=== PATIENT | female | born 1995 | race Caucasian/White ===

== ENCOUNTER 2017-05-20 18:26 | Emergency (ER) | payer OTHER ==
[~2017-05-20] VITALS: Ht 170.2 cm; Wt 79.0 kg
[2017-05-20 18:35] VITALS: BP 110/76; PULSE 96; RESP 16; TEMP 98.2; O2SAT 99
[2017-05-20 19:02] LABS: GLUCOSE,URINE NEG (NEG); KETONE, URINE NEG (NEG); NITRITE,URINE NEG (NEG)
[2017-05-20 19:05] LABS: BLOOD, URINE MOD (NEG)
[2017-05-20 19:10] LABS: URINE COLOR YELLOW (YELLW/STRAW)
[2017-05-20 19:11] LABS: BACTERIA, URINE FEW /hpf; MUCUS URINE FEW /lpf (OCC); RBC, URINE 0-3 /hpf (0-3); SQUAMOUS EPITHELIAL CELL URINE > 8 /hpf (0-5)
[2017-05-20 19:12] LABS: COMMENT (UR) CULTURE INDICATED; CULTURE IF INDICATED CULTURE INDICATED
[2017-05-20 19:42] VITALS: BP 124/71; PULSE 94; RESP 18; O2SAT 99
[2017-05-20] MEDS ORDERED: [UNRECOGNIZED DRUG - OTHER] PO (19:42)
[2017-05-20] MEDS ORDERED: BIOTCAP PO (19:42)
[2017-05-20 20:30] VITALS: BP 113/64; PULSE 88; RESP 18; O2SAT 99
[2017-05-20 20:32] LABS: AUTOMATED NEUTROPHIL # 9.4 TH/MM3 (1.8-7.7); BASOPHIL # 0.1 TH/MM3 (0-0.2); BASOPHIL % 0.4 % (0.0-2.0); EOSINOPHIL # 0.6 TH/MM3 (0-0.4); EOSINOPHIL % 3.8 % (0.0-4.0); LYMPH % 31.2 % (9.0-44.0); LYMPHOCYTE # 4.8 TH/MM3 (1.0-4.8); MEAN CELL VOLUME 87.1 FL (80.0-100.0); MEAN CORPUSCULAR HEMOGLOBIN 29.6 PG (27.0-34.0); MONO % 3.9 % (0.0-8.0); NEUT % 60.7 % (16.0-70.0); PLATELET COUNT 354 TH/MM3 (150-450); RED BLOOD COUNT 4.71 MIL/MM3 (4.00-5.30); RED CELL DISTRIBUTION WIDTH 12.3 % (11.6-17.2); WHITE BLOOD COUNT 15.5 TH/MM3 (4.0-11.0)
[2017-05-20 20:34] LABS: HEMO FLAGS DIFF FINAL
[2017-05-20 20:39] LABS: CHLORIDE 107 MEQ/L (98-107); POTASSIUM 3.6 MEQ/L (3.5-5.1); SODIUM (NA) 139 MEQ/L (136-145)
[2017-05-20 20:42] LABS: ANION GAP 9 MEQ/L (5-15); BICARBONATE 23.4 MEQ/L (21.0-32.0); BLOOD UREA NITROGEN 17 MG/DL (7-18)
[2017-05-20 20:45] LABS: GLOMERULAR FILTRATION RATE 112 ML/MIN (>89)
[2017-05-20 20:50] LABS: BETA HCG QUANT LESS THAN 1 MIU/ML (0-5)
--- NOTE | 2017-05-20 20:52 | PD ---
HPI Chief Complaint: Low Voltage Electrician Problem/Complaint Time Seen by Provider: 20:10 Travel History International Travel<30 days: No Contact w/Intl Traveler<30days: No Traveled to known affect area: No History of Present Illness HPI 21-year-old female presents to the emergency department for complaint of lower abdominal pain pelvic pain and vaginal bleeding. Patient states she's had lower abdominal pain pelvic pain 4 months with worsening symptoms times one month. Patient has been having regular menses monthly. Last period was 2 weeks ago and normal for her. Patient is 0 para 0 AB 0. Patient states that she has been experiencing painful intercourse. Patient's had no discharge or dysuria frequency urgency hematuria or flank pain. Patient's had no fever or chills. No nausea vomiting anorexia or weight loss. Patient states after intercourse last evening had vaginal bleeding which is atypical for her. Patient had been on control pills approximate 6 months discontinued those and then started having normal periods approximately 4 months ago. Since test was negative is concerned that she is . Patient denies other concerns or complaints. Pain is 4-5/10 intensity decreases to 8/10 intensity. PFSH Past Medical History Narrative Medical Heart murmur, hand surgery; no tobacco use alcohol use; nursing notes reviewed Heart Rhythm Problems: Yes (Heart murmur as a child) Diminished Hearing: No Tetanus Vaccination: Unknown Influenza Vaccination: No ?: Unknown LMP: 2 WEEKS Past Surgical History Other Surgery: Yes (Right hand third digit ) Social History Alcohol Use: No Tobacco Use: No Substance Use: No Allergies-Medications (Allergen,Severity, Reaction): Coded Allergies: Ventolin (Verified Allergy, Unknown, 05/20/17) Reported Meds & Prescriptions Reported Meds & Active Scripts Active Macrobid (Nitrofurantoin Monoh/Nitrofur Macro) 100 Mg Cap 100 Mg PO BID 7 Days Ibuprofen 800 Mg Tab 800 Mg PO Q8H PRN Reported Biotin 5 Mg Cap 5 Mg PO [Activit] 1 Cap PO DAILY Review of Systems Except as stated in HPI: all other systems reviewed are Neg General / Constitutional: No: Fever, Chills HENT: No: Congestion Cardiovascular: No: Chest Pain or Discomfort Respiratory: No: Shortness of Breath Gastrointestinal: Positive: Abdominal Pain, No: Nausea, Vomiting Genitourinary: Positive: Pelvic Pain, Vaginal Bleeding, No: Urgency, Frequency , Dysuria, Discharge Musculoskeletal: No: Myalgias, Arthralgias Skin: No Rash Neurologic: No: Weakness Psychiatric: No: Anxiety Hematologic/Lymphatic: No: Easy Bruising Physical Exam Narrative GENERAL: Well-developed well-nourished female in no acute distress no respiratory distress SKIN: Warm and dry. HEAD: Normocephalic. EYES: No scleral icterus. No injection or drainage. NECK: Supple, trachea midline. No JVD or lymphadenopathy. CARDIOVASCULAR: Regular rate and rhythm without murmurs, gallops, or rubs. RESPIRATORY: Breath sounds equal bilaterally. No accessory muscle use. GASTROINTESTINAL: Abdomen soft, non-tender, nondistended. Pelvic exam: Normal external exam no redness induration or lesions; speculum exam scant white mucus but no blood no clots no tissue no abrasions no tears no laceration; bimanual exam no cervical motion tenderness no adnexal mass or tenderness cervical os is closed. MUSCULOSKELETAL: No cyanosis, or edema. BACK: Nontender without obvious deformity. No CVA tenderness. Data Data Last Documented VS Orders Urinalysis - C+S If Indicated (05/20/17 18:39) Ed Urine Pregnancytest Poc (05/20/17 18:39) Urine Culture (05/20/17 18:37) Complete Blood Count With Diff (05/20/17 20:10) Basic Metabolic Panel (Bmp) (05/20/17 20:10) Beta Hcg (Quant/Titer) (05/20/17 20:10) Wet Prep Profile (05/20/17 21:06) Gc And Chlamydia Pcr (05/20/17 21:06) Ct Abd/Pel W Iv Contrast(Rout) (05/20/17 ) Iohexol 350 Inj (Omnipaque 350 Inj) (05/20/17 22:00) Nitrofurantoin Monohyd Macrocr (Macrobid (05/21/17 00:15) Ibuprofen (Motrin) (05/21/17 00:15) Labs MDM Medical Decision Making Medical Screen Exam Complete: Yes Emergency Medical Condition: Yes Medical Record Reviewed: Yes Interpretation(s) cbc: Leukocytosis 15,500 without left shift Metabolic panel: Within normal limits Urinalysis positive bacteria positive white blood cells; culture indicated Wet prep negative PCR negative POC hCG negative Last Impressions Abdomen/Pelvis CT 05/20/17 0000 Signed Impressions: Service Date/Time: Saturday, May 20, 2017 21:49 - CONCLUSION: 1. No acute finding is identified within the abdomen or pelvis. 2. There is trace free fluid in the pelvis. Deon Michael MD Differential Diagnosis Abdominal pain, pelvic pain, UTI, , STD, bacterial vaginosis, ovarian cysts, vaginal trauma, dyspareunia Narrative Course Specimens collected and sent for resulting Patient sent for imaging study Patient with pelvic pain of unclear etiology with essentially negative CT abdomen and pelvis; patient is not ; patient identified to have some white blood cells and bacteria and urine cultures indicated therefore treated for presumptive cystitis/UTI Patient is stable for outpatient management and follow-up with primary care provider Diagnosis Primary Impression: Female pelvic pain Additional Impression: UTI (urinary tract infection) Referrals: [facility] call for appointment special education assistant STOCK CHECKER Dr Brennan Patient Instructions: General Instructions Med/Other Pt SpecificInfo: Prescription(s) given Scripts Nitrofurantoin Monohydrate Macrocrystals (Macrobid)100 Mg [id number] Mg PO BID 7 Days Ref 0 Prov:Magdalena Blake MD 05/21/17 Ibuprofen 800 Mg [id number] Mg PO Q8H PRN (PAIN GREATER THAN 5) #12 TAB Ref 0 Prov:Magdalena Blake MD 05/21/17 Disposition: 01 DISCHARGE HOME Condition: Stable Magdalena Blake MD May 20, 2017 20:52 Concent Red Cell Distribution Width 12.3 % Platelet Count 354 TH/MM3 Mean Platelet Volume 7.4 FL Neutrophils (%) (Auto) 60.7 % Lymphocytes (%) (Auto) 31.2 % Monocytes (%) (Auto) 3.9 % Eosinophils (%) (Auto) 3.8 % Basophils (%) (Auto) 0.4 % Neutrophils # (Auto) 9.4 TH/MM3 Lymphocytes # (Auto) 4.8 TH/MM3 Monocytes # (Auto) 0.6 TH/MM3 Eosinophils # (Auto) 0.6 TH/MM3 Basophils # (Auto) 0.1 TH/MM3 CBC Comment DIFF FINAL Differential Comment Sodium Level 139 MEQ/L Potassium Level 3.6 MEQ/L Chloride Level 107 MEQ/L Carbon Dioxide Level 23.4 MEQ/L Anion Gap 9 MEQ/L Blood Urea Nitrogen 17 MG/DL Creatinine 0.66 MG/DL Estimat Glomerular Filtration 112 ML/MIN Rate Random Glucose 96 MG/DL Calcium Level 8.9 MG/DL Human Chorionic Gonadotropin, LESS THAN 1 Quant MIU/ML Clue Cells (Wet Prep) NONE SEEN Vaginal Trichomonas (Wet Prep) NONE SEEN Vaginal Yeast (Wet Prep) NONE SEEN MDM Medical Decision Making Medical Screen Exam Complete: Yes Emergency Medical Condition: Yes Medical Record Reviewed: Yes Differential Diagnosis Abdominal pain, pelvic pain, UTI, , STD, bacterial vaginosis, ovarian cysts, vaginal trauma, dyspareunia Diagnosis Primary Impression: Female pelvic pain Additional Impression: UTI (urinary tract infection) Referrals: [facility] call for appointment special education assistant STOCK CHECKER Dr Brennan Patient Instructions: General Instructions Med/Other Pt SpecificInfo: Prescription(s) given Scripts Nitrofurantoin Monohydrate Macrocrystals (Macrobid)100 Mg [id number] Mg PO BID 7 Days Ref 0 Prov:Magdalena Blake MD 05/21/17 Ibuprofen 800 Mg [id number] Mg PO Q8H PRN (PAIN GREATER THAN 5) #12 TAB Ref 0 Prov:Magdalena Blake MD 05/21/17 Disposition: 01 DISCHARGE HOME Condition: Stable Magdalena Blake MD May 20, 2017 20:52
[2017-05-20 21:30] VITALS: BP 108/58; PULSE 88; RESP 18; O2SAT 100
[2017-05-20] MEDS ORDERED: IOHEXOL 350 MG/ML 10 ML VIAL (for RAD DIAG) IV ONE (22:00)
--- NOTE | 2017-05-20 22:16 | RADRPT ---
EXAM DATE/TIME: 05/20/2017 21:49 [facility] COMPARISON: No previous studies available for comparison. INDICATIONS : Abdominal pain with vaginal bleeding. IV CONTRAST: 100 cc Omnipaque 350 (iohexol) IV ORAL CONTRAST: No oral contrast ingested. RADIATION DOSE: 11.69 CTDIvol (mGy) MEDICAL HISTORY : None SURGICAL HISTORY : None. ENCOUNTER: Initial ACUITY: 4 - 6 months PAIN SCALE: 8/10 LOCATION: abdomen/bleeding for 1 day. TECHNIQUE: Volumetric scanning of the abdomen and pelvis was performed. Using automated exposure control and ad justment of the mA and/or kV according to patient size, radiation dose was kept as low as reasonably achievable to obtain optimal diagnostic quality images. FINDINGS: LOWER LUNGS: The visualized lower lungs are clear. LIVER: Homogeneous density without lesion. There is no dilation of the biliary tree. No calcified gallston es. SPLEEN: Normal size without lesion. PANCREAS: Within normal limits. KIDNEYS: Normal in size and shape. There is no mass, stone or hydronephrosis. ADRENAL GLANDS: Within normal limits. VASCULAR: There is no aortic aneurysm. BOWEL/MESENTERY: The stomach, small bowel, and colon demonstrate no acute abnormality. There is no free intraperitone al air. There is trace free fluid in the pelvis. The appendix is normal. ABDOMINAL WALL: Within normal limits. RETROPERITONEUM: There is no lymphadenopathy. BLADDER: No wall thickening or mass. REPRODUCTIVE: Within normal limits. There is a rim enhancing corpus luteal cyst in the right ovary. INGUINAL: There is no lymphadenopathy or hernia. MUSCULOSKELETAL: Within normal limits for patient age. CONCLUSION: 1. No acute finding is identified within the abdomen or pelvis. 2. There is trace free fluid in the pelvis. Deon Michael MD on May 20, 2017 at 22:11 Board Certified Radiologist. This report was verified electronically.
[2017-05-20 22:30] VITALS: BP 106/65; PULSE 85; RESP 18; O2SAT 98
[2017-05-20 23:30] VITALS: BP 101/59; PULSE 85; RESP 18; TEMP 98.2; O2SAT 98
[2017-05-21] MEDS ORDERED: IBUP800T23 PO (00:07)
[2017-05-21] MEDS ORDERED: MACR100C2 PO (00:07)
[2017-05-21] MEDS ORDERED: NITROFURANTOIN MONOHYD MACROCR 100 MG CAP PO ONE (00:15)
[2017-05-21] MEDS ORDERED: IBUPROFEN 800 MG TAB PO ONE (00:15)
[2017-05-21 00:31] VITALS: BP 105/65
[2017-05-21 01:18] LABS: CHLAMYDIA PCR NOT DETECTED (NOT DETECT); NEISSERIA PCR NOT DETECTED (NOT DETECT)
== END 2017-05-21 00:32 | disposition home or self-care (01) ==
LOC: PHED 18:26
DX: N39.0 Urinary tract infection, site not specified (principal); R10.2 Pelvic and perineal pain; N94.10 Unspecified dyspareunia; N93.0 Postcoital and contact bleeding
CPT/HCPCS: 74177; 80048; 81001; 84702; 84703; 85025; 87086; 87210; 87491; 87591; 99285; Q9967